=== PATIENT | female | born 1950 | race Caucasian/White ===

== ENCOUNTER → 2016-05-15 | Outpatient (CLI) | payer BC, OTHER ==
[~2016-05-15] VITALS: Ht 157.5 cm; Wt 63.0 kg
[~2016-05-15] MED LIST: ALPHA LIPOIC A200 M1 PO; AMBIEN 10 MG TA10 MG PO; CAL-LAC100 MG PO; CRESTOR5 MG PO; CYMBALTA60 MG PO; ESTRATEST PO; FISH OIL 1,0001 EAC5 PO; FISH OIL 1,001000 M2 PO; HYDROCODONE-AP1 EA11 PO; LEVOTHYROXIN0.088 MG PO; LEXAPRO 10 MG T10 MG PO; LYRICA 50 MG50 MG PO; MAGOX 400400 MG PO; MULTIVITAMINS PO; PROBIOTIC1 EAC1 PO; SYNTHROID88 MCG PO; TIZANIDINE HCL 22 M1 PO; TYLENOL325 MG PO; VITAMIN D1000 UNI1 PO; VITAMIN E400 UNIT PO; ZANAFLEX4 MG PO
== END | disposition home or self-care (01) ==
LOC: CAT 07:24
DX: M71.38 Other bursal cyst, other site (principal); M47.816 Spondylosis without myelopathy or radiculopathy, lumbar region; E03.9 Hypothyroidism, unspecified; Z90.710 Acquired absence of both cervix and uterus; Z85.820 Personal history of malignant melanoma of skin; Z98.890 Other specified postprocedural states

== ENCOUNTER → 2017-09-19 | Outpatient (CLI) | payer OTHER, MEDICARE | LOC: RAD 16:31 | DX: M54.5 Low back pain (principal) ==